=== PATIENT | male | born 2005 | race Caucasian/White ===

== ENCOUNTER 2025-03-18 14:19 | Emergency (ER) | payer OTHER, SELFPAY ==
--- NOTE | ~2025-03-18 | XR_ITS ---
EXAMINATION: XR hand LT min 3V, 03/18/2025 14:30 CDT HISTORY: pain/crush injury COMPARISON: No comparisons available. Findings: No acute fracture or malalignment. No significant degenerative changes. Soft tissues unremarkable. Impression: No acute fracture or malalignment. Reviewed, dictated and finalized at location P. Impression: No acute fracture or malalignment.
[2025-03-18 14:19] VITALS: BP 121/76; PULSE 81; RESP 18; TEMP 36.4; O2SAT 99
--- NOTE | 2025-03-18 14:28 | ED.UPPEXIN ---
HPI - Extremity Injury (Upper) General Chief Complaint: Extremity Injury, Upper Stated Complaint: left 5th finger crush injury Time Seen by Provider: 03/18/25 14:28 Source: patient Mode of arrival: ambulatory Limitations: no limitations History of Present Illness HPI narrative: Patient is a 19-year-old male with a left small digit crush injury at work prior to arrival. Patient got a pipe made of metal crushing his finger into another piece of metal. Residual laceration and pain. MD complaint: injury to: left and finger (Small) Onset (ago): hour(s) (1) Other injuries: none Place: work Severity: mild Severity scale (1-10): 2 Relieving factors: immobilization Exacerbating factors: movement of extremity Context: direct blow, laceration and crush Associated symptoms: denies other symptoms Treatments prior to arrival: bandage Review of Systems Review of Systems: All systems reviewed & are unremarkable except as noted in HPI and below Constitutional: Constitutional: Reports no additional constitutional complaints Eyes: Eyes: Reports no additional eye complaints ENT: Reports system reviewed and no additional complaints, except as documented Cardiovascular: Cardiovascular: Reports no additional cardiovascular complaints Respiratory: Respiratory: Reports no additional respiratory complaints Gastrointestinal: Gastrointestinal: Reports no additional gastrointestinal complaints Genitourinary: Genitourinary: Reports no additional male genitourinary complaints Musculoskeletal: Musculoskeletal: Reports no additional musculoskeletal complaints Integumentary/Breasts: Skin/Breast: Reports system reviewed and no additional complaints, except as docu Neurologic: Reports system reviewed and no additional complaints, except as documented Psychiatric: Psychiatric: Reports no additional psychiatric complaints Endocrine: Endocrine: Reports no additional endocrine complaints Hematologic/Lymphatic: Hematologic/Lymphatic: Reports no additional hematologic/lymphatic complaints Allergic/Immunologic: Allergic/Immunologic: Reports no additional allergic/immunologic complaints Exam Const: General: healthy appearing Nutritional Appearance: well nourished Orientation/consciousness: patient oriented x3 HENMT: Head: normal to inspection Ears: external ears normal Face/Nose/Sinus: Normal external nose present Eyes: Conjunctivae: conjunctivae normal Pupils: Equal, round and reactive pupils present EOM: EOMs intact bilaterally Neck: Neck: normal visual inspection Chest: Chest palpation & inspection: normal inspection of the chest Resp: Effort & Inspection: normal respiratory effort and not labored Auscultation: clear to auscultation bilaterally Cardio: Rate: regular rate Rhythm: regular rhythm Heart sounds: no murmurs GI: Inspection: non-distended GI Palp: Yes Soft to palpation and No Tenderness to palpation present (GI) Auscultation: normal bowel sounds : General: Yes bladder normal to palpation Back/Spine/Pelvis: Back: no CVA tenderness Skin: General skin exam: normal color Rashes: no rashes Wounds: wound noted Other: Left hand small digit palmar surface has a maceration/laceration irregular design Neuro: General: patient oriented x3, moves all extremities and no meningeal signs Extrem: General: abnormal to inspection Other: Left hand small digit palmar surface has a irregular shaped laceration/maceration from work injury and bleeding has stopped and no signs of infection with minimal tenderness Psych: Mental Status: mental status grossly normal Affect: normal affect Attitude: cooperative Course Vital Signs Vital signs: Vital Signs Temperature 36.4 C L 03/18/25 14:19 Pulse Rate 81 03/18/25 14:19 Respiratory Rate 18 03/18/25 14:19 Blood Pressure 121/76 03/18/25 14:19 Pulse Oximetry 99 03/18/25 14:19 Oxygen Delivery Room Air 03/18/25 14:19 Temperature 36.4 C L 03/18/25 14:19 Pulse Rate 81 03/18/25 14:19 Respiratory Rate 18 03/18/25 14:19 Blood Pressure 121/76 03/18/25 14:19 Pulse Oximetry 99 03/18/25 14:19 Oxygen Delivery Room Air 03/18/25 14:19 Procedures Other Procedure Procedure 1: Other Procedure: Left hand small digit palmar surface 2 cm laceration repair: Area cleaned with chlorhexidine spray, adhesive glue placed on top of open wound with good results, finger splint applied, patient tolerated procedure well and no complications MDM - Extremity Injury (Upper) MDM Narrative Medical decision making narrative: Patient is a 19-year-old male with a left finger small digit crush injury with laceration/maceration prior to arrival. Tetanus up-to-date for age. Adhesive glue placed. Finger splint. X-ray. Imaging Data Attestation: I personally reviewed and interpreted this imaging study as follows: Radiologist's impression: X-ray left hand shows no acute fracture or process Discharge Plan Discharge Clinical Impression: Finger laceration Qualifiers: Encounter type: initial encounter Finger: little finger Damage to nail status: without damage Foreign body presence: without foreign body Laterality: left Qualified Code(s): S61.217A - Laceration without foreign body of left little finger without damage to nail, initial encounter Crush injury to finger Qualifiers: Encounter type: initial encounter Qualified Code(s): S67.10XA - Crushing injury of unspecified finger(s), initial encounter Patient Disposition: Home Condition: Stable Instructions: Skin Adhesive Care (ED), Crush Injury (ED) Patient Language: Moroccan Follow-up/Referrals: UNKNOWN,DOCTOR [Primary Care Provider] Time of Disposition: 15:07
--- NOTE | 2025-03-18 15:12 | PC.NURSE ---
On 03/18/25, the student, [OSMAR HIDALGO ], provided care and completed [facility] documentation on this patient. I have reviewed the student's documentation and agree with the findings.
--- OUTSIDE RECORDS SUMMARY | 2025-03-18 15:18 | XMS_ITS | Clinical Summary ---
Author Organization [facility] Address [facility] [place] [address] Care Team Providers Care Magnetic Tape Winder Name Role Phone Darren Martines MD Primary Care Provider Allergies No known active allergies Medications ibuprofen (MOTRIN) 800 MG tabletIndication s:Acute medial meniscal injury of knee, right, initial encounter Take 1 tablet (800 mg total) by mouth every 8 (eight) hours as needed. 90 tablet 10/07/2024 Active Active Problems No known active problems Family History Medical History Relation Comments No Known Problems Father No Known Problems Mother No Known Problems Sister Relation Status Comments Father Alive Mother Alive Sister Alive Social History Tobacco Use Types Packs/Day Years Used Date Smoking Tobacco: Never Smokeless Tobacco: Never Alcohol Use Standard Drinks/Week Comments No 0 (1 standard drink = 0.6 oz pur e alcohol) AUDIT-C Answer Date Recorded Frequency of Alcohol Consumption Never 03/17/2019 Average Number of Drinks Not on file 019 Frequency of Binge Drinking Not on file 02/22 Sex and Gender Information Value Date Recorded Sex Assigned at Male 09/27/2024 5:54 PM CDT 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 Gender Identity Not on file Sexual Orientation Not on file Last Filed Vital Signs Vital Sign Reading Time Taken Comments Blood Pressure 126/78 09/27/2024 4:52 PM CDT Pulse 88 09/27/2024 4:52 PM CDT Temperature 37 C (98.6 F) 09/27/2024 4:52 PM CDT Respiratory Rate 18 09/27/2024 4:52 PM CDT Oxygen Saturation 100% 09/27/2024 4:52 PM CDT Inhaled Oxygen Concentration - - Weight 59 kg (130 lb) 10/19/2024 1:40 PM CDT Height 170.2 cm (5' 7) 10/19/2024 1:40 PM CDT Body Mass Index 20.36 10/19/2024 1:40 PM CDT Plan of Treatment Health Maintenance Due Date Last Done Comments Annual Physical 2008 HPV Vaccines (2 - Male 2-dos e series) 09/15/2017 03/18/2017 Meningococcal B Vaccine (1 o f 2 - Standard) 2021 Hepatitis C 2023 DTaP, Tdap and Td Vaccines ( 2 - Tdap) 2024 12/01/2006 Hepatitis B Vaccines (1 of 3 - 19+ 3-dose series) 2024 COVID-19 Vaccine (1 - 2023-2 5 season) 2025 Meningococcal Vaccine Aged Out 03/18/2017 No primo deidre eligible based on patient's age to complete this topic Pneumococcal Vaccine: Pediat rics (0 to 5 Years) and At-Risk Patients (6 to 49 Years) Aged Out No longer eligi ble based on patient's age to complete this topic RSV Immunizations Under 20 Months Aged Out No longer eligible based on patient's age to complete this topic Insurance T MEDICAID Care Teams Magnetic Tape Winder Relationship Specialty Start Date End Date Darren Martines MD [address] [place] [address] PCP - General FAMILY PRACTICE 03/17/19
--- OUTSIDE RECORDS SUMMARY | 2025-03-18 15:18 | XMS_ITS | Encounter Summary ---
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
== END 2025-03-18 15:20 | disposition home or self-care (01) ==
PROVIDERS: Emergency Provider Emergency Medicine; Referring Provider Family Medicine
DX: S61.217A Laceration without foreign body of left little finger without damage to nail, initial encounter (principal); S67.10XA Crushing injury of unspecified finger(s), initial encounter; X58.XXXA Exposure to other specified factors, initial encounter; Y99.0 Civilian activity done for income or pay
CPT/HCPCS: 12001; 73130; 99283